=== PATIENT | male | born 1935 | race Caucasian/White ===

== ENCOUNTER 2017-07-23 11:18 | Emergency (ER) | payer OTHER ==
[~2017-07-23] VITALS: Ht 162.6 cm; Wt 68.0 kg
[~2017-07-23 11:18] MED LIST: ARICEPT10 MG; ASA81 MG PO; CIPRO500 MG PO; FLAGYL500MG PO; LEVAQUIN750 MG PO; NAMENDA10 MG; NEURONTIN300 MG PO; PERCOCET 5/3251 TAB PO; PNEU16DI2; POLY119PG PO; PROBIOTIC1 EAC3 PO; PROTONIX40 MG PO; SYNTHROID50 MCG; SYNTHROID50 MCG PO; ULTRACET PO
[2017-07-23] MEDS ORDERED: ZOFRAN4 MG PO (15:28)
[2017-07-23] MEDS ORDERED: DICY20TA PO (15:28)
== END 2017-07-23 15:36 | disposition home or self-care (01) ==
LOC: ER 11:18
DX: R11.0 Nausea (principal)

== ENCOUNTER 2018-06-23 19:50 | Emergency (ER) | payer OTHER ==
[~2018-06-23] VITALS: Ht 162.6 cm; Wt 54.4 kg
[~2018-06-23 19:50] MED LIST changes: +DICY20TA PO; +ZOFRAN4 MG PO
[2018-06-24] MEDS ORDERED: APETIGEN-PLUS1 EACH PO (07:15)
== END 2018-06-24 08:27 | disposition home or self-care (01) ==
LOC: ER 19:50
DX: R63.0 Anorexia (principal); E86.0 Dehydration

== ENCOUNTER → 2018-07-16 | Emergency (ER) | payer OTHER ==
[~2018-07-16] VITALS: Ht 162.6 cm; Wt 45.4 kg
[~2018-07-16] MED LIST changes: +APETIGEN-PLUS1 EACH PO
== END | disposition home or self-care (01) ==
LOC: ER 11:23
DX: J84.10 Pulmonary fibrosis, unspecified (principal); M54.6 Pain in thoracic spine; G30.8 Other Alzheimer's disease; F02.80 Dementia in other diseases classified elsewhere, unspecified severity, without behavioral disturbance, psychotic disturbance, mood disturbance, and anxiety

== ENCOUNTER 2018-08-12 14:48 | Inpatient (IN) | payer OTHER ==
[~2018-08-12] VITALS: Ht 152.4 cm; Wt 44.9 kg
--- NOTE | 2018-08-12 15:08 | NUR ---
SE RECIBE PTE. MASCULINO EN [place] REFERIDO POR DR. WICKBAN MARTÍNEZ POR DIFICULTAD RESPIRATORIA SE UBICA EN SECCION K CAMA 6 Y SE PRESENTA A MEDICO EN [place].
[2018-08-12] MEDS ORDERED: ESBRIET267 MG (15:10)
--- NOTE | 2018-08-12 16:29 | NUR ---
PACIENTE ALERTA,ACTIVO Y ORIENTADO.SE ORIENTA DE TRATAMINETO JAMA ORDEN MEDICA REFIERE ENTENDER.SE PARIS MUESTRAS Y SE CANALIZA CON MEDIDAS ASEPTICAS CORRES- PONDIENTES.SE ANDIE H/L PATENTE,AREA YAMINI DE EDEMA Y/O ERITEMA.
--- NOTE | 2018-08-12 23:30 | NUR ---
SE RECIBE PACIENTE ALERTA Y ORIENTADO EN COMPANIA DE FAMILIAR. SE OBSERVA PACIENTE DEBIL Y CON POBRE TURGOR. BUEN PATRON RESPIRATORIO ASISTIDO CON CANULA NASAL A 3LTS. PACIENTE CON ORINA ESPONTANEA. PENDIENTE ECHO IN AM Y CONSULTA CON DR. Patti MARTÍNEZ.
--- NOTE | 2018-08-13 07:16 | NUR ---
SE RECIBE PTE ALERTA Y ORIENTADO X 3 ESFERAS, EN CAMA NIVEL MAS BAJO, BATES DE IDENTIFICACION, ACOMPANADO POR FAMILIAR. SE OBSERVA CON BUEN PATRON RESPIRATORIO Y PIEL TIBIA AL TACTO. IV PATENTE Y YAMINI DE EDEMA CON 0.9% NSS @100ML/HR. PTE PENDIENTE A REALIZAR ECHO NOTIFICADO A PERSONAL DE TUR[place]. PENDIENTE A CONSULTA CON DR Patti MARTÍNEZ. SE MANTIENE BAJO OBSERVACION.
[2018-08-20] MEDS ORDERED: MEGESTROL400 MG/10 PO (17:00)
== END 2018-08-20 17:54 | disposition home or self-care (01) | DRG 197 ==
LOC: ER 14:48 → MEDI 08-13 18:34 → MEDJ 08-13 18:34 → MEDI 08-18 14:54
PROVIDERS: ADMIT Internal Medicine
PROC: 3E0F7GC Introduction of Other Therapeutic Substance into Respiratory Tract, Via Natural or Artificial Opening (ICD-10-PCS; 2018-08-13)
PROC: 4A033R1 Measurement of Arterial Saturation, Peripheral, Percutaneous Approach (ICD-10-PCS; 2018-08-13)
PROC: BW24ZZZ Computerized Tomography (CT Scan) of Chest and Abdomen (ICD-10-PCS; principal; 2018-08-15)
DX: J84.114 Acute interstitial pneumonitis (principal); J44.1 Chronic obstructive pulmonary disease with (acute) exacerbation; K57.32 Diverticulitis of large intestine without perforation or abscess without bleeding; E44.0 Moderate protein-calorie malnutrition; J45.31 Mild persistent asthma with (acute) exacerbation; R64 Cachexia; K80.80 Other cholelithiasis without obstruction; D12.7 Benign neoplasm of rectosigmoid junction; E03.8 Other specified hypothyroidism; N40.0 Benign prostatic hyperplasia without lower urinary tract symptoms; F43.22 Adjustment disorder with anxiety; E86.0 Dehydration; E87.8 Other disorders of electrolyte and fluid balance, not elsewhere classified; K40.90 Unilateral inguinal hernia, without obstruction or gangrene, not specified as recurrent

== ENCOUNTER 2018-09-02 13:25 | Emergency (ER) | payer OTHER ==
[~2018-09-02] VITALS: Ht 149.9 cm; Wt 40.8 kg
[~2018-09-02 13:25] MED LIST changes: +ESBRIET267 MG; +MEGESTROL400 MG/10 PO
== END 2018-09-02 18:54 | disposition home or self-care (01) ==
LOC: ER 13:25
DX: J84.10 Pulmonary fibrosis, unspecified (principal); E86.0 Dehydration